=== PATIENT | male | born 1935 | race Caucasian/White ===

== ENCOUNTER 2018-01-06 05:50 | Day surgery (SDC) | payer OTHER, BC | END 2018-01-06 11:00 | disposition home or self-care (01) | LOC: AMB-ENDOS 05:50 | DX: D12.0 Benign neoplasm of cecum (principal); D12.3 Benign neoplasm of transverse colon; K57.30 Diverticulosis of large intestine without perforation or abscess without bleeding; K64.1 Second degree hemorrhoids ==